=== PATIENT | female | born 2000 | race Caucasian/White ===

== ENCOUNTER 2021-04-25 15:49 | Emergency (ER) | payer OTHER, SELFPAY ==
[2021-04-25 16:05] VITALS: BP 121/70; PULSE 105; RESP 16; TEMP 37.1; O2SAT 97
--- NOTE | 2021-04-25 16:08 | PC.NURSE ---
Pt ambulated to restroom and provided ua.
--- NOTE | 2021-04-25 16:12 | ED.GENADULT ---
HPI - General Adult General Chief complaint: Urogenital-Female Stated complaint: blood in urine Source: patient Mode of arrival: ambulatory Limitations: no limitations History of Present Illness HPI narrative: Matti is a previously healthy 20F that presented to the ED with hematuria. She has had a few days of dysuria, urgency and developed gross hematuria today as well as nausea. She denies fevers, chills, and vomiting. Related Data Allergies Allergy/AdvReac Type Severity Reaction Status Date / Time No Known Allergies Allergy Verified 04/25/21 16:04 Review of Systems Constitutional: Constitutional: Reports no additional constitutional complaints Eyes: Eyes: Reports no additional eye complaints ENT: Reports system reviewed and no additional complaints, except as documented Cardiovascular: Cardiovascular: Reports no additional cardiovascular complaints Respiratory: Respiratory: Reports no additional respiratory complaints Gastrointestinal: Gastrointestinal: Reports no additional gastrointestinal complaints Genitourinary: Genitourinary: Reports no additional female genitourinary complaints Musculoskeletal: Musculoskeletal: Reports no additional musculoskeletal complaints Integumentary/Breasts: Skin/Breast: Reports system reviewed and no additional complaints, except as docu Neurologic: Reports system reviewed and no additional complaints, except as documented Psychiatric: Psychiatric: Reports no additional psychiatric complaints Endocrine: Endocrine: Reports no additional endocrine complaints Hematologic/Lymphatic: Hematologic/Lymphatic: Reports no additional hematologic/lymphatic complaints Allergic/Immunologic: Allergic/Immunologic: Reports no additional allergic/immunologic complaints Exam Const: General: no acute distress and alert Orientation/consciousness: patient oriented x3 HENMT: Head: normal to inspection Other: atrauamtic Eyes: Conjunctivae: conjunctivae normal Pupils: Equal, round and reactive pupils present Neck: Neck: normal visual inspection Chest: Chest palpation & inspection: normal inspection of the chest Resp: Effort & Inspection: normal respiratory effort Auscultation: clear to auscultation bilaterally Cardio: Rate: regular rate Rhythm: regular rhythm GI: Other: suprapubic tenderness. No guarding or rebound tenderness. : General: Yes no CVA tenderness Skin: General skin exam: normal color Rashes: no rashes Neuro: General: patient oriented x3 and moves all extremities Extrem: General: normal to inspection Psych: Appearance: grossly normal and well kempt Mental Status: mental status grossly normal Course Course Emergency Course: Ordered UA, GC and chlamydia. UA consistent with UTI. She was given a dose of IM ceftriaxone. Vital Signs Vital signs: Vital Signs Temperature 98.8 F 04/25/21 16:05 Pulse Rate 105 H 04/25/21 16:05 Respiratory Rate 16 04/25/21 16:05 Blood Pressure 121/70 04/25/21 16:05 Pulse Oximetry 97 04/25/21 16:05 Temperature 98.8 F 04/25/21 16:05 Pulse Rate 90 04/25/21 17:06 Respiratory Rate 19 04/25/21 17:06 Blood Pressure 112/64 04/25/21 17:06 Pulse Oximetry 98 04/25/21 17:06 Medical Decision Making Vital Signs Vital Signs: Vital Signs Temperature 98.8 F 04/25/21 16:05 Pulse Rate 105 H 04/25/21 16:05 Respiratory Rate 16 04/25/21 16:05 Blood Pressure 121/70 04/25/21 16:05 Pulse Oximetry 97 04/25/21 16:05 Temperature 98.8 F 04/25/21 16:05 Pulse Rate 90 04/25/21 17:06 Respiratory Rate 19 04/25/21 17:06 Blood Pressure 112/64 04/25/21 17:06 Pulse Oximetry 98 04/25/21 17:06 Lab Data Labs: Lab Results 04/25/21 04/25/21 Range/Units 16:17 16:17 Urine Color Dark orange (Yellow) Urine Appearance Clear (Clear) Urine pH 6.5 (5.0-8.0) Ur Specific [place] 1.015 (1.010-1.020) Urine Protein 1+ H (Negative) Urine Glucose (UA) 1+ H (Neg
--- NOTE | 2021-04-25 16:12 | PC.NURSE ---
UA walked to lab
[2021-04-25 16:22] LABS: Appearance Urine Clear (Clear); Bilirubin Urine 1+ (Negative); Blood Urine 1+ (Negative); Glucose Urine UA 1+ (Negative); Ketones Urine Negative (Negative); Leukocyte Esterase Ur Trace (Negative); Nitrate Urine Positive (Negative); Protein Urine 1+ (Negative); Specific Grav Ur 1.015 (1.010-1.020); pH Urine 6.5 (5.0-8.0)
[2021-04-25 16:27] LABS: Add Urine Microscopic? YES; Color Urine Dark Orange (Yellow); Squamous Epithelial Cell Urine Few /hpf (Few); WBC Urine 51-75 /hpf (0-3)
[2021-04-25 16:28] LABS: Bacteria Urine 3+ /hpf; Mucus Urine Heavy /lpf; WBC Clumps Urine Present /hpf
[2021-04-25 17:06] VITALS: BP 112/64; PULSE 90; RESP 19; O2SAT 98
[2021-04-25] MEDS: cefTRIAXone 1 GM VIAL IM (17:06)
[2021-04-25] MEDS: LIDOCAINE HCL 1% LOCAL INJ 20 ML VIAL (17:13)
== END 2021-04-25 17:45 | disposition home or self-care (01) ==
PROVIDERS: Emergency Provider Family Medicine
DX: N39.0 Urinary tract infection, site not specified (principal)
CPT/HCPCS: 81001; 87491; 87591; 96372; 99283; J0696